=== PATIENT | female | born 1990 | race Caucasian/White ===

== ENCOUNTER 2017-03-13 04:10 | Inpatient (IN) | payer OTHER ==
[~2017-03-13] VITALS: Ht 160 cm; Wt 73.5 kg
[~2017-03-13 04:10] MED LIST: DOCU-264 PO; FAMO-90 PO
[2017-03-13] MEDS ORDERED: LACTATED RINGERS 1,000 ML IV SCH (16:50)
[2017-03-13] MEDS ORDERED: OXYTOCIN 20 UNITS/LR PREMIX 1,000 ML IV SCH (16:50)
[2017-03-13 18:03] LABS: BASOPHILS % (AUTO) 0.4 % (0.0-2.0); EOSINOPHILS # (AUTO) 0.1 K/uL (0-0.4); EOSINOPHILS % (AUTO) 1.6 % (0.0-4.0); HEMOGLOBIN 10.5 g/dL (12.0-16.0); LYMPHOCYTES # (AUTO) 1.4 K/uL (2.5-16.5); LYMPHOCYTES % (AUTO) 15.8 % (20.5-51.1); MEAN CORPUSCULAR HEMOGLOBIN 28 pg (27-31); MEAN CORPUSCULAR HGB CONC 32 g/dL (33-37); MEAN CORPUSCULAR VOLUME 88 fL (80-94); MONOCYTES # (AUTO) 0.5 K/uL (0.8-1.0); MONOCYTES % (AUTO) 5.9 % (1.7-9.3); NEUTROPHILS # (AUTO) 7.1 K/uL (1.8-7.7); NEUTROPHILS % (AUTO) 76.3 % (42.2-75.2); PLATELET COUNT (AUTO) 226 K/uL (140-450); RED BLOOD CELL COUNT(AUTO) 3.74 MIL/uL (4.20-5.40); RED CELL DISTRIBUTION WIDTH 13.1 % (11.6-13.7); WHITE BLOOD COUNT (AUTO) 9.1 K/uL (4.8-10.8)
[2017-03-13 18:09] LABS: APPEARANCE,URINE SL CLOUDY (CLEAR); BILIRUBIN,URINE NEGATIVE (NEGATIVE); BLOOD, URINE NEGATIVE (NEGATIVE); COLOR,URINE YELLOW (YELLOW); LEUKOCYTE ESTERASE ,URINE TRACE (NEGATIVE); NITRITE, URINE NEGATIVE (NEGATIVE); PROTEIN,URINE NEGATIVE (NEGATIVE); UGLUCOSE NEGATIVE (NEGATIVE)
[2017-03-13 18:14] LABS: BACTERIA,URINE 2+ /HPF (None Seen); RBC,URINE 0-5 /HPF (0-5)
[2017-03-13 18:15] LABS: MUCUS,URINE 2+ /LPF (None Seen); SQUAMOUS EPITHELIAL CELL,UR 40-60 /LPF (0-3 (FEW))
[2017-03-13 18:18] LABS: AMPHETAMINE, URINE NEG. ng/ml (NEG <=1000); BARBITURATE, URINE NEG. ng/ml (NEG <=200); BENZODIAZEPINE, URINE NEG. ng/mL (NEG <=200); CANNABINOID, URINE NEG. ng/mL (NEG <=50); COCAINE, URINE NEG. ng/mL (NEG <=300); OPIATE, URINE NEG. ng/mL (NEG <=2000); PHENCYCLIDINE SCREEN,URINE NEG. ng/mL (NEG <=25)
[2017-03-13] MEDS: LACTATED RINGERS 1,000 ML IV SCH (22:00)
[2017-03-13] MEDS ORDERED: MISOPROSTOL 25 MCG TAB ONE (22:04)
[2017-03-13] MEDS: MISOPROSTOL 25 MCG TAB VG PRN (23:35)
[2017-03-14] MEDS ORDERED: MISOPROSTOL 25 MCG TAB ONE ×3 (02:32→11:00)
[2017-03-14] MEDS: MISOPROSTOL 25 MCG TAB VG PRN (06:43)
[2017-03-14] MEDS: LACTATED RINGERS 1,000 ML IV SCH ×2 (06:44→14:21)
--- NOTE | 2017-03-14 08:07 | NUR ---
PATIENT HAS BEEN SCREENED AND CATEGORIZED LOW NUTRITION RISK. PATIENT WILL BE SEEN WITHIN 7 DAYS OF ADMISSION. 03/20/[address]
[2017-03-14] MEDS ORDERED: MORPHINE SULFATE 10 MG/ML SYR IVP PRN (09:20)
[2017-03-14] MEDS ORDERED: PROMETHAZINE 25 MG/ML VIAL IVP SCH (09:20)
[2017-03-14] MEDS ORDERED: MORPHINE SULFATE 10 MG/ML SYR ONE (09:29)
[2017-03-14] MEDS ORDERED: PROMETHAZINE 25 MG/ML VIAL ONE ×2 (09:29→17:25)
[2017-03-14] MEDS ORDERED: NALBUPHINE 10 MG/ML AMP IVP PRN (17:15)
[2017-03-14] MEDS ORDERED: PROMETHAZINE 25 MG/ML VIAL IVP PRN (17:15)
[2017-03-14] MEDS ORDERED: NALBUPHINE HYDROCHLORIDE 10 MG/ML VIAL ONE (17:24)
[2017-03-14] MEDS ORDERED: OXYTOCIN 20 UNITS/LR PREMIX 1,000 ML IV ONE (18:10)
[2017-03-14] MEDS ORDERED: OXYTOCIN 10 UNITS/ML VIAL ONE (18:30)
[2017-03-14] MEDS ORDERED: LIDOCAINE 1% 0 ML ONE (18:30)
[2017-03-15 06:31] LABS: BASOPHILS # (AUTO) 0.1 K/uL (0.00-0.22); EOSINOPHILS # (AUTO) 0.1 K/uL (0-0.4); EOSINOPHILS % (AUTO) 1.4 % (0.0-4.0); HEMOGLOBIN 9.7 g/dL (12.0-16.0); LYMPHOCYTES % (AUTO) 20.1 % (20.5-51.1); MEAN CORPUSCULAR HEMOGLOBIN 29 pg (27-31); MEAN CORPUSCULAR HGB CONC 33 g/dL (33-37); MEAN CORPUSCULAR VOLUME 88 fL (80-94); MONOCYTES # (AUTO) 0.8 K/uL (0.8-1.0); MONOCYTES % (AUTO) 8.3 % (1.7-9.3); NEUTROPHILS # (AUTO) 7.2 K/uL (1.8-7.7); NEUTROPHILS % (AUTO) 69.2 % (42.2-75.2); PLATELET COUNT (AUTO) 173 K/uL (140-450); RED BLOOD CELL COUNT(AUTO) 3.29 MIL/uL (4.20-5.40); RED CELL DISTRIBUTION WIDTH 13.4 % (11.6-13.7); WHITE BLOOD COUNT (AUTO) 10.2 K/uL (4.8-10.8)
[2017-03-15] MEDS ORDERED: KETOROLAC 30 MG/ML VIAL ONE (07:15)
[2017-03-15] MEDS ORDERED: BUPIVACAINE-MPF 0.75% 10 ML VIAL INJ ONE (07:15)
[2017-03-15] MEDS ORDERED: MIDAZOLAM 2 MG/2 ML VIAL ONE (07:24)
[2017-03-15] MEDS ORDERED: fentaNYL 0.05 MG/ML VIAL ONE (07:24)
[2017-03-15] MEDS ORDERED: BUPIVACAINE-MPF/EPI 0.5% 30 ML VIAL INJ ONE (07:25)
[2017-03-15] MEDS ORDERED: KETAMINE 500 MG/5 ML VIAL ONE (07:43)
[2017-03-15] MEDS ORDERED: ONDANSETRON 4 MG/2 ML VIAL IVP PRN (07:45)
[2017-03-15] MEDS ORDERED: HYDROmorphone 1 MG/ML AMP IVP PRN (07:45)
[2017-03-15] MEDS ORDERED: CLINDAMYCIN 600 MG/4 ML VIAL ONE (07:46)
[2017-03-15] MEDS ORDERED: ONDANSETRON 4 MG/2 ML VIAL ONE (08:43)
[2017-03-15] MEDS ORDERED: KETOROLAC 30 MG/ML VIAL IVP PRN (12:25)
[2017-03-15] MEDS ORDERED: MEASLES, MUMPS, AND RUBELLA 1 VIAL SQVAC PRN (12:25)
[2017-03-15] MEDS ORDERED: OXYTOCIN 10 UNITS/ML VIAL IM PRN (12:25)
[2017-03-15] MEDS ORDERED: TEMAZEPAM 15 MG CAP PO PRN (12:25)
[2017-03-15] MEDS ORDERED: METHYLERGONOVINE 0.2 MG/ML AMP IM PRN (12:25)
[2017-03-15] MEDS ORDERED: HYDROcodone/APAP 5/325 MG 1 TAB TAB PO PRN ×2 (12:30→12:35)
[2017-03-15] MEDS ORDERED: IBUPROFEN 800 MG TAB PO PRN (17:00)
== END 2017-03-16 14:30 | disposition home or self-care (01) | DRG 541 ==
LOC: UNDOADMIN 04:10 → MLD 04:10 → OBSVTOIN 16:10 → INTOOBSV 16:10 → MLD 16:10 → MFCC 03-14 23:55
PROVIDERS: ADMIT Obstetrics & Gynecology; ATTEND Obstetrics & Gynecology
PROC: 10E0XZZ Delivery of Products of Conception, External Approach (ICD-10-PCS; principal; 2017-03-14)
PROC: 3E033VJ Introduction of Other Hormone into Peripheral Vein, Percutaneous Approach (ICD-10-PCS; 2017-03-14)
PROC: 3E0P7GC Introduction of Other Therapeutic Substance into Female Reproductive, Via Natural or Artificial Opening (ICD-10-PCS; 2017-03-14)
PROC: 0UB70ZZ Excision of Bilateral Fallopian Tubes, Open Approach (ICD-10-PCS; 2017-03-15)
DX: O62.3 Precipitate labor (principal); O99.02 Anemia complicating childbirth; Z3A.38 38 weeks gestation of pregnancy; O09.43 Supervision of pregnancy with grand multiparity, third trimester; Z37.0 Single live birth; Z30.2 Encounter for sterilization; Z28.21 Immunization not carried out because of patient refusal
CPT/HCPCS: 36415; 51702; 59200; 59409; 80305; 81001; 85025; 86592; 86886; 86900; 86901; 87086; J1885; J2001; J2250; J2270; J2300; J2405; J2550; J2590; J3010; J3490; J7120